=== PATIENT | female | born 1960 | race Caucasian/White ===

== ENCOUNTER 2024-10-15 17:39 | Emergency (ER) | payer BC, SELFPAY ==
[2024-10-15 17:41] VITALS: BMI 27.3
--- NOTE | 2024-10-15 17:46 | EKG_ITS ---
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
[2024-10-15 17:49] VITALS: BP 123/82; PULSE 87; RESP 18; TEMP 36.8; O2SAT 100; BMI 27.3
--- NOTE | 2024-10-15 18:03 | EDRME_ITS ---
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
--- NOTE | 2024-10-15 18:03 | XR_ITS ---
Examination: PA chest single view TECHNIQUE: Upright PA chest single view Examination time: 10/15/2024t 1711 hours Comparison November 13, 2018 INDICATIONS: Chest pain today. FINDINGS: Normal heart size The lungs are clear. Fracture deformity left clavicle, old IMPRESSION: No active disease
[2024-10-15 18:35] LABS: Basophils # (Auto) 0.1 Thou/mm3 (0.0-0.2); Basophils % (Auto) 1 % (0-2.5); Eosinophils # (Auto) 0.3 Thou/mm3 (0.0-0.5); Eosinophils % (Auto) 4 % (0-10); Hematocrit 37.2 % (36.0-46.0); Hemoglobin 12.8 g/dL (12.0-16.0); Immature Granulocytes % (Auto) 0 % (0-0); Immature Granulocytes Auto 0.02 Thou/mm3 (0.00-0.00); Lymphocytes # (Auto) 3.1 Thou/mm3 (1.0-4.8); Lymphocytes % (Auto) 41 % (10-50); Mean Corpuscular HGB Conc 34.4 g/dl (31.0-37.0); Mean Corpuscular Hemoglobin 30.9 pg (25.0-35.0); Mean Corpuscular Volume 90 fL (80-100); Monocytes # (Auto) 0.7 Thou/mm3 (0.0-0.8); Monocytes % (Auto) 9 % (0-12); Neutrophils # (Auto) 3.5 Thou/mm3 (1.8-7.7); Neutrophils % (Auto) 45 % (37-80); Nucleated Red Blood Cell % 0 /100 WBC (0); Platelet Count 233 Thou/mm3 (140-440); RDW Standard Deviation 43.3 fL (36.4-46.3); Red Blood Count 4.14 Miln/mm3 (4.00-5.20); White Blood Count 7.6 Thou/mm3 (3.6-11.0)
[2024-10-15 19:02] LABS: Alanine Aminotransferase 24 U/L (10-49); Albumin, Serum 4.5 gm/dL (3.4-4.8); Alkaline Phosphatase 65 U/L (46-116); Anion Gap 10 (7-16); Aspartate Amino Transferase 26 U/L (0-34); BUN/Creatinine Ratio 16 Ratio (12-20); Bilirubin,Total 0.3 mg/dL (0.3-1.2); Blood Urea Nitrogen 14 mg/dL (9-23); Calcium 10.3 mg/dL (8.3-10.6); Calcium (Corrected) 10.3 mg/dL (8.5-10.1); Carbon Dioxide 26.6 mMol/L (20.0-31.0); Chloride 101 mMol/L (98-107); Creatinine (Component) 0.9 mg/dL (0.6-1.3); Estimated Creatinine Clearance 65.4 mL/min (>60); Globulin 2.2 gm/dL (2.3-3.5); Glucose 110 mg/dL (74-106); Osmolality,Calculated 277 (275-295); Potassium 3.6 mMol/L (3.4-5.1); Sodium 138 mMol/L (136-145); Total Protein 6.7 gm/dL (5.7-8.2); Troponin I < 0.002 ng/mL (0.0-0.045); eGFR > 60 See Note
[2024-10-15 19:13] LABS: B-Type Natriuretic Peptide 29 pg/mL (0-100)
[2024-10-15 19:58] LABS: D-Dimer < 250 ng/mL (<600)
[2024-10-15 20:07] LABS: Lipase 58 U/L (12-53); Magnesium 1.8 mg/dL (1.6-2.6)
[2024-10-15 20:12] VITALS: BP 113/76; PULSE 70; RESP 18; TEMP 36.8; O2SAT 98
--- NOTE | 2024-10-15 20:19 | PD.EDCHEST ---
ED Chest Pain RME/HPI General Chief Complaint: Chest Pain Stated Complaint: CHEST PAIN X 30MIN, BP 71/60 @ HOME, DIZZY 1 HR Time Seen by Provider: 10/15/24 17:43 Arrival date/time: 10/15/24 17:39 63 year old female with past medical history of HDL, HTN present to emergency room with c/o Chest pain 2 hours ago. pt report had stress test but was incomplete in Apr 2024. LOCATION: chest SEVERITY: Symptoms are described as being severe with limitations on activities of daily living CONTEXT: The patient is unable to identify any inciting events. DURATION/TIMING: The symptoms started approximately 2 hours ago ASSOCIATED SYMPTOMS: The patient is unable to identify any other associated symptoms. MODIFYING FACTORS: The patient is unable to identify any alleviating or aggravating symptoms. PERTINENT ROS: no fevers, no cough, no pleuritic pain, no ripping or tearing sensations, denies any lower extremity edema and no unilateral swelling, no shortness of breath no nausea,vomiting, diarrhea, no headache no rash no loc/syncope episode no abd/back pain no dsyuria,urgency,frequency REVIEW OF SYSTEMS: See History of Present Illness - with the exception of those mentioned in the history of present illness, all other systems reviewed and reported as negative GENERAL: In general the patient is awake, interactive, in an emergency department gurney. HEAD/EYES/EARS/NOSE/THROAT: normo-cephalic, atraumatic, mucus membranes are moist, anicteric, palpebral conjunctiva is pink, trachea is midline. CARDIOVASCULAR: regular rate and regular rhythm, no murmurs, heart sounds are not distant, strong pulses in all four extremities that are equal and symmetric bilateral upper and lower extremities, normal capillary refill. CHEST/PULMONARY: normal chest rise and fall, good air movement, clear to auscultation bilaterally, normal inspiratory to expiratory ratios without evidence of respiratory distress. NECK: No midline/Paraspinal tenderness, no step off ROM/Strenght intact No Kernig and bruzinski sign. No trauma ABDOMEN: soft, not tender, no masses appreciated BACK: normal range of motion without pain. NEUROLOGICAL: cranio-facial features are symmetric, moves all four extremities equally without obvious limitations or weakness. EXTREMITY: no tenderness to palpation over the long bones or large joints of the bilateral upper and lower extremities, no joint swelling, no joint erythema, no signs of trauma, no unilateral leg swelling and no peripheral edema. SKIN: warm, dry, well-perfused, no jaundice, no rash, no telangiectasias or petechia. 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, c/o dizziness Related Data Home Medications ?Medication ?Instructions ?Recorded ?Confirmed lansoprazole 30 mg capsule,delayed 30 mg PO PRN PRN Acid Reflux ##0 12/04/15 11/13/18 release (Prevacid) bupropion HCl 150 mg tablet,12 hr 150 mg PO QDAY 11/13/18 11/13/18 sustained-release (Wellbutrin SR) olmesartan 40 1 tab PO QDAY 11/13/18 11/13/18 mg-hydrochlorothiazide 12.5 mg tablet (Benicar HCT) propranolol 40 mg tablet 40 mg PO BID 11/13/18 11/13/18 Previous Rx's ?Medication ?Instructions ?Recorded acetaminophen 650 mg 650 mg PO Q8H #60 tabs 11/13/18 tablet,extended release ibuprofen 600 mg tablet 600 mg PO Q6H #60 tabs 11/13/18 Allergies Allergy/AdvReac Type Severity Reaction Status Date / Time ciprofloxacin (From Cipro) Allergy Mild Agitated Verified 10/15/24 17:44 SULFA Allergy Intermediate Joint Pain Uncoded 10/15/24 17:44 Course Course Course Narrative: Given History, Exam, and Workup I have low suspicion for ACS, Pneumothorax, Gerd, Bacterial Pneumonia, Pulmonary Embolus, Tamponade, Aortic Dissection or other emergent problem as a cause for this presentation.? Last Stress Test:?incomplete stress test Apr 2024 Last Heart Catheterization:? never HEART Score:?2-3 Quality Measures none Orders Category Date Time Status EKG (ED ONLY) *Do not use* NOW Care 10/15/24 17:46 Completed CXR [XR chest 1V] Stat Exams 10/15/24 18:03 Completed EKG (ED Only) Stat Exams 10/15/24 17:46 Draft BNP [B-Type Natriuretic Peptide] Stat Lab 10/15/24 18:12 Completed CBC Stat Lab 10/15/24 18:12 Completed CMP [Comprehensive Metabolic Panel] Stat Lab 10/15/24 18:12 Completed D-Dimer Stat Lab 10/15/24 18:12 Completed Lipase Stat Lab 10/15/24 18:12 Completed MG [Magnesium] Stat Lab 10/15/24 18:12 Completed Troponin I Stat Lab 10/15/24 18:12 Completed Reevaluation(s) Reevaluation #1: pt is feeling better, and comfortable to go home. Vital Signs Vital signs: Vital Signs Temperature 98.3 F 10/15/24 17:49 Pulse Rate 87 10/15/24 17:49 Respiratory Rate 18 10/15/24 17:49 Blood Pressure 123/82 10/15/24 17:49 Pulse Oximetry (%) 100 10/15/24 17:49 Procedures -ED EKG Interpretation #1: Date of EK10/15/24 Time of EK:13 Rate: 77 Interpretation: Reviewed by me EKG Impression: Normal sinus rhythm, No acute ST-T changes, No ectopy, No ischemic changes, Normal QRS and Normal intervals Chest Pain Patient data External records reviewed:: [facility] previous records Clinical information provided by:: patient and family Social determinants that could affect healthcare access:: none Patient has the following chronic illnesses:: HDL,HTN How is presenting disease/condition affected by chronic disease/condition?: exacerbated by Evaluation data The following diagnostics were reviewed and interpreted by me:: lab results, radiology exam(s) and EKG tracing(s) Lab and/or radiology exams considered but not ordered:: n/a Interpretation Summary: cbc/cmp wnl trop x2 negative ddimer negative mg/lipase wnl Medications / Prescriptions Medications or Prescriptions considered but not ordered:: n/a Medication administrations:: n/a Consultations Consultation(s) initiated? (list below): No Diagnosis Chest Pain Differential Diagnosis: fracture of rib, pneumothorax, stable angina, unstable angina pectoris, atypical chest pain, st elevation myocardial infarction, costochondritis, chest pain and biliary colic Most likely diagnosis given after review of the tests above:: chest pain Admission Indicated Admission indicated?: not indicated Admission Request Was there a request for admission?: No Disposition Plan Disposition Plan: Discharge Discharge Attestation Discharge Attestation: The patient and all family members were given an opportunity to ask questions and understood the discharge instructions. Discharge instructions specifically effects, indications for sooner follow up or return to the emergency department, and the expected course of current diagnosis. Patient condition: Stable Discharge Plan Plan Patient Disposition: HOME (Self Care) Health Concerns: Follow up with your cath lab nurse as directed Return to ED if symptoms worsen Prescriptions/Referrals Prescriptions/Med Rec: No Action lansoprazole [Prevacid] 30 MG capsule,delayed release(DR/EC) 30 mg PO PRN PRN (Reason: Acid Reflux) Qty: 0 Patient Comments: TO SUPPRESS GASTRIC ACID SECRETION bupropion HCl [Wellbutrin SR] 150 mg Tablet Sustained-Release 12 Hr 150 mg PO QDAY propranolol 40 mg Tablet 40 mg PO BID olmesartan-hydrochlorothiazide [Benicar HCT] 40-12.5 mg Tablet 1 tab PO QDAY acetaminophen 650 mg tablet extended release 650 mg PO Q8H Qty: 60 0RF Rx Instructions: swallow whole; do not chew/break/dissolve/open ibuprofen 600 mg tablet 600 mg PO Q6H Qty: 60 0RF Referrals: No Primary/Family,Physician [Primary Care Provider] - In 1 week Problem List Clinical Impression: Chest pain Patient/Caregiver Discharge Instructions Education Materials: ED Chest Pain, Uncertain Cause Print Language: Serbian Stand Alone Forms: Casandra Award Info., Patient Portal Info Letter
[2024-10-15 20:21] VITALS: BP 116/79; PULSE 76; RESP 16; TEMP 36.7; O2SAT 98
== END 2024-10-15 20:23 | disposition home or self-care (01) ==
PROVIDERS: Physician Assistant; Emergency Provider Emergency Medicine
DX: R07.9 Chest pain, unspecified (principal); I10 Essential (primary) hypertension; E78.5 Hyperlipidemia, unspecified
CPT/HCPCS: 36415; 71045; 80053; 83690; 83735; 83880; 84484; 85025; 85379; 93005; 99283